=== PATIENT | female | born 2000 | race Two or more races ===

== ENCOUNTER 2020-11-23 09:01 | Emergency (ER) | payer SELFPAY ==
[~2020-11-23] VITALS: Ht 160 cm; Wt 79.7 kg
--- NOTE | 2020-11-23 10:33 | NUR ---
MASTER CONTROL TECHNICIAN: PT TO TRIAGE ROOM #1 FROM LOBBY AT THIS TIME.
[2020-11-23 11:15] VITALS: BP 131/90
--- NOTE | 2020-11-23 11:20 | NUR ---
Patient/Caregiver given discharge instructions and they have confirmed that they understand the instructions. Patient ambulatory with steady gait.
== END 2020-11-23 12:24 | disposition home or self-care (01) ==
LOC: ED 11:31
DX: J06.9 Acute upper respiratory infection, unspecified (principal); Z20.822 Contact with and (suspected) exposure to COVID-19
CPT/HCPCS: 71045; 87081; 87880; 99284; U0003; U0005